=== PATIENT | male | born 1945 | race Caucasian/White ===

== ENCOUNTER → 2020-07-31 14:15 | Outpatient (BNVA) | payer MEDICARE, SELFPAY | PROVIDERS: PCP Family Medicine; Visit Provider Internal Medicine Cardiovascular Disease | DX: I25.10 Atherosclerotic heart disease of native coronary artery without angina pectoris (principal); E78.5 Hyperlipidemia, unspecified | CPT/HCPCS: 93005; 99212 ==

== ENCOUNTER → 2021-08-01 10:01 | Outpatient (BNVA) | payer MEDICARE, SELFPAY | PROVIDERS: PCP Family Medicine; Referring Provider Family Medicine; Visit Provider Internal Medicine Cardiovascular Disease | DX: I25.10 Atherosclerotic heart disease of native coronary artery without angina pectoris (principal); E78.5 Hyperlipidemia, unspecified | CPT/HCPCS: 93005; 99212 ==

== ENCOUNTER → 2022-08-04 09:48 | Outpatient (BNVA) | payer MEDICARE, SELFPAY | PROVIDERS: PCP Family Medicine; Referring Provider Family Medicine; Visit Provider Internal Medicine Cardiovascular Disease | DX: I25.10 Atherosclerotic heart disease of native coronary artery without angina pectoris (principal) | CPT/HCPCS: 93005; 99212 ==

== ENCOUNTER 2023-08-03 08:23 | Outpatient (REF) | payer MEDICARE, SELFPAY ==
[2023-08-03 10:47] LABS: Cholesterol 123 mg/dL (<200); HDL Cholesterol 43 mg/dL (>40); LDL Cholesterol Calculated 62 mg/dL (<100); Triglycerides 94 mg/dL (<150)
[2023-08-04 14:09] LABS: CRP High Sensitivity 0.3 mg/L
== END 2023-08-03 08:24 | disposition home or self-care (01) ==
LOC: HO.LAB 08:23
PROVIDERS: PCP Family Medicine; Visit Provider Internal Medicine Cardiovascular Disease
DX: I25.10 Atherosclerotic heart disease of native coronary artery without angina pectoris (principal); E78.5 Hyperlipidemia, unspecified
CPT/HCPCS: 36415; 80061; 86141

== ENCOUNTER 2023-08-06 09:13 | Outpatient (AMB) | payer MEDICARE, SELFPAY ==
--- NOTE | 2023-08-06 09:15 | A.OFFVIS_ITS ---
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 He has remained very active generally. Still plays golf. Denies any symptoms exertional chest pain. Has notice mild slowing down but not really significant shortness of breath or fatigue. No orthopnea, PND. No symptoms of claudication. No prolonged palpitations, lightheadedness, syncope. [facility] Medical History History of myocardial infarction Hyperlipidemia CAD (coronary artery disease) Surgical History Stented coronary artery Hx of cardiac cath Family History Father Lung cancer Mother CVD (cardiovascular disease) Breast CA Social History Household Members: Spouse Housing: House Alcohol intake: current Alcohol intake frequency: holidays/special occasions only Patient Tobacco Use Status: Never used Tobacco Review of Systems Const Denies chills, Denies fatigue, Denies fever(s), Denies frequent falls, Denies weakness, Denies weight gain and Denies weight loss ENT Denies dizziness Card Denies chest pain, Denies leg edema, Denies lightheadedness, Denies palpitations, Denies dyspnea, Denies dyspnea on exertion, Denies orthopnea and Denies other (loss of consciousness) Resp Denies cough, Denies dyspnea and Denies dyspnea on exertion GI Denies hematochezia and Denies change in stool character Musc Denies abnormal gait, Denies muscle weakness, Denies numbness, Denies radiating pain into limb and Denies tingling Neuro Denies abnormal gait, Denies dizziness, Denies frequent falls, Denies numbness, Denies tingling and Denies weakness Endo Denies fatigue and Denies palpitations Physical Exam Vital Signs: Last Vital Signs Pulse 65 08/06/23 09:16 BP 120/80 08/06/23 09:16 BMI result Body Mass Index 28.8 Const General: cooperative, comfortable, alert, awake and well groomed Nutritional Appearance: overweight Orientation/consciousness: patient oriented x3 Limitations: no limitations HEENT Head: Yes normocephalic and Yes atraumatic Neck Neck: Yes trachea midline and Yes supple Resp Effort & Inspection: normal respiratory effort Auscultation: clear to auscultation bilaterally Cardio Jugular venous distension: no JVD Palpation: normal PMI Rate: regular rate Rhythm: regular rhythm Heart sounds: S1 normal heart sound present and S2 normal heart sound present Peripheral pulses: Peripheral pulses 2+ throughout GI Auscultation: normal bowel sounds Skin General skin exam: no rashes or lesions noted Neuro General: patient oriented x3 and no focal motor deficits Extrem General: Yes no clubbing, cyanosis or edema Psych Appearance: grossly normal Office Procedures EKG Details: EKG shows normal sinus rhythm normal EKG at 65 beats per minute [id number], Complete Assessment & Plan Assessment & Plan (1) CAD (coronary artery disease): Code(s): I25.10 - Atherosclerotic heart disease of [place] coronary artery without angina pectoris Plan: CAD status post total posterior TX status post circumflex stenting in 2015. Has remained stable. He has no current concerning symptoms. Continue to monitor for symptoms advised to call me with worsening shortness of breath or chest discomfort which may require further workup. Continue lifelong aspirin therapy. Continue high-intensity statin therapy with well optimized LDL. His blood pressure is currently well optimized. Encouraged to continue to participate in physical activity as tolerated. Will follow up in the clinic in 1 year's time, sooner p.r.n.. Thank you for allowing me to partake in his care Coding Level of Care Code Est Pt Level 4 (84142) Diagnoses CAD (coronary artery disease) I25.10 CPT Codes EKG - CPT: 32273-[id number], Complete ([id number])
[2023-08-06 09:16] VITALS: BP 120/80; PULSE 65; BMI 28.8
== END 2023-08-06 09:36 | disposition home or self-care (01) ==
PROVIDERS: Visit Provider Internal Medicine Cardiovascular Disease
DX: I25.10 Atherosclerotic heart disease of native coronary artery without angina pectoris (principal)
CPT/HCPCS: 93010; 99214

== ENCOUNTER → 2023-08-06 09:13 | Outpatient (BNVA) | payer MEDICARE, SELFPAY | PROVIDERS: Visit Provider Internal Medicine Cardiovascular Disease | DX: I25.10 Atherosclerotic heart disease of native coronary artery without angina pectoris (principal) | CPT/HCPCS: 93005; 99212 ==

== ENCOUNTER 2024-08-11 09:22 | Outpatient (AMB) | payer MEDICARE, SELFPAY ==
[2024-08-11 09:25] VITALS: BP 120/62; PULSE 66; BMI 29.2
--- NOTE | 2024-08-11 09:25 | A.OFFVIS_ITS ---
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 He has been doing very well from cardiac perspective. However he has not been regularly participating in aerobic activity in the winter time. He was no exertional chest pain or shortness of breath with his day-to-day activity. Denies any heart failure symptoms. Denies any lightheadedness, syncope. No issues with his medications. Most recent LDL was 62 mg/dL. [facility] Medical History History of myocardial infarction Hyperlipidemia CAD (coronary artery disease) Surgical History Stented coronary artery Hx of cardiac cath Family History Father Lung cancer Mother CVD (cardiovascular disease) Breast CA Social History Household Members: Spouse Housing: House Alcohol intake: current Alcohol intake frequency: holidays/special occasions only Patient Tobacco Use Status: Never used Tobacco Review of Systems Const Denies chills, Denies fatigue, Denies fever(s), Denies frequent falls, Denies weakness, Denies weight gain and Denies weight loss ENT Denies dizziness Card Denies chest pain, Denies leg edema, Denies lightheadedness, Denies palpitations, Denies dyspnea and Denies dyspnea on exertion Resp Denies cough, Denies dyspnea and Denies dyspnea on exertion GI Denies hematochezia Musc Denies abnormal gait, Denies muscle weakness, Denies numbness, Denies radiating pain into limb and Denies tingling Neuro Denies abnormal gait, Denies dizziness, Denies frequent falls, Denies numbness, Denies tingling and Denies weakness Endo Denies fatigue and Denies palpitations Physical Exam Vital Signs: Last Vital Signs Pulse 66 08/11/24 09:25 BP 120/62 08/11/24 09:25 BMI result Body Mass Index 29.2 Const General: cooperative, comfortable, alert, awake and well groomed Nutritional Appearance: overweight Orientation/consciousness: patient oriented x3 Limitations: no limitations HEENT Head: Yes normocephalic and Yes atraumatic Neck Neck: Yes trachea midline and Yes supple Resp Effort & Inspection: normal respiratory effort Auscultation: clear to auscultation bilaterally Cardio Jugular venous distension: no JVD Palpation: normal PMI Rate: regular rate Rhythm: regular rhythm Heart sounds: S1 normal heart sound present and S2 normal heart sound present Peripheral pulses: Peripheral pulses 2+ throughout GI Auscultation: normal bowel sounds Skin General skin exam: no rashes or lesions noted Neuro General: patient oriented x3 and no focal motor deficits Extrem General: Yes no clubbing, cyanosis or edema Psych Appearance: grossly normal Office Procedures EKG Details: EKG shows normal sinus rhythm with normal EKG at 66 beats per minute [id number], Complete Assessment & Plan Assessment & Plan (1) CAD (coronary artery disease): Code(s): I25.10 - Atherosclerotic heart disease of [place] coronary artery without angina pectoris Category: Medical Plan: Coronary artery disease, stable with remote stenting for acute myocardial infarction in the circumflex territory. Doing very well at current point time. No recent symptoms. Continue aggressive medical therapy. Continue low-dose aspirin therapy. We again discussed about pathophysiology of coronary artery disease and role of statin and secondary prevention. His LDL is optimized at 62 mg/dL. Continue high-intensity statin therapy as recommended by ACC/[facility] guidelines. He understands in his agreeing. Annual check for lipids. He is encouraged to increase his aerobic activity level. He said he was start to do that. Will follow up in the clinic in 1 year's time, sooner p.r.n.. Thank you for allowing me to partake in his care Coding Level of Care Code Est Pt Level 4 (70840) Complex EM visit Add On G2211 Diagnoses CAD (coronary artery disease) I25.10 CPT Codes EKG - CPT: 27167-[id number], Complete ([id number])
--- OUTSIDE RECORDS SUMMARY | 2024-08-11 12:28 | XMS_ITS | Data Portability ---
Author Organization [facility], [facility] Address [address] [place] [address] Care Team Providers Care Oxyacetylene Torch Operator Name Role Phone FALLON RODRIGUEZ OTHER ANDREAS RYDER Primary Care Provider Assessment Encounter Date Assessment Date Assessment LastModified by Organization Details LastModified Time 04/05/2024 04/05/2024 We completed your Medicare Wellness exam today. This was an opportunity to assess your overall well being including your ability to care for yourself, your mobility, memory, mental health, as well as your safety. With advancing age, it is important to assign someone in your life as your Health Care Proxy (HCP). This person should know what is important to you and what your wishes are for medical procedures if you cannot communicate your wishes yourself (severe illness, unconsciousness) . We discussed having a completed Health Care Proxy form today. In addition, today we started a conversation about your End of Life wishes. These conversations will continue over the years. Please consider reading the book, Being Mortal by Romario Mendez to help frame future conversations. We discussed the purpose of a MOLST form (Medical Orders for Life Sustaining Treatment) and completed this form if appropriate per your wishes. Vision and Hearing are senses that are critically important as we age. When impaired, they can contribute to memory loss, falls, and make it harder to drive, talk to family and friends, and engage in the world. Please get your vision checked yearly and your hearing checked when you start to notice hearing loss. We discussed approaches to lowering your risk of heart disease and stroke . Your blood pressure is at goal. Your cholesterol is at goal. We discussed cancer screening you may need as well as vaccines to prevent infections. Colon Cancer : Your risk of colon cancer is higher than average due to personal history of colon polyps. Due for colorectal screenin. If you are not planning to have a colonoscopy please screen with stool cards yearly. Breast Cancer : Breast Cancer Screening (mammography). Next mammogram due: . Influenza Vaccine : Flu shot yearly. Tetanus Vaccine : Every 10 years. Due: . The following vaccines are available from your pharmacy: Pneumonia Vaccine : PCV20: once after age 65. Shingles Vaccine : 2 shots after age 50. Covid Vaccine : Make sure you have received the most up to date covid vaccine. Your personal health goal for the year is: floyd Not available 04/05/2024 16:04:20 Plan of Treatment Reminders Order Date Submit Date Provider Last Modified By Organization Details Last Modified Time Details Appointments LAB Follow-Up 2024 08:15A M [facility] Lab Not available Not available Not available Medicare Return Wellness Visit 2024 11:15A M Andreas Ryder MD Not available Not available Not available Lab HbA1c (hemoglob in A1c), blood 2020 021 [facility], [address] [place] [address], [id number], 04/22/2021 12:02:46 lipid panel, serum 2020 021 [facility], [address] [place] [address], [id number], 04/22/2021 12:10:01 BMP, serum or plasma 2020 021 [facility], [address] [place] [address], [address], 04/22/2021 12:09:59 CRP, high sensitivi ty, serum or plasma 2023 024 [facility], [address] [place] [address], [id number], 04/19/2024 04:03:04 HbA1c (hemoglob in A1c), blood 2023 024 [facility], [address] [place] [address], [id number], 04/18/2024 11:53:40 BMP, serum or plasma 2023 024 [facility], [address] [place], [address], 04/19/2024 13:07:18 lipid panel, serum 2023 024 [facility], [address] [place], [address], 04/19/2024 13:07:19 Referral gastroent erologist referral - [facility] dysphagia every 2 months. with meat. ? altered peristals is/ esoph spasm/ vs stricture ( less likely). Barium swallow ordered 2019 020 [facility], [address] [place] [address], [id number], 03/22/2020 13:48:55 Procedures None recorded. Surgeries None recorded. Imaging barium swallow study - regular barium swallow, no speech therapist needed/Fo od getting stuck every 2 months( then for a few meals at a time after that). then normal./c an be done in a few months if need be 2019 020 [facility], [address] [place], [address], 12/07/2019 11:09:42 Medication Orders prednison e 20 mg tablet 2023 024 [facility]acy #[id number], [address] [place], [address], 04/01/2024 10:03:44 Patient TargetsNo targets recorded. Patient Instructions Encounter Date Encounter Id Patient Instructions Last Modified By Organization Details Last Modified Time 11/29/2019 [id number] This was a telehealth video visit using the program in lieu of an in person visit due to the Covid 19 at pandemic. The patient was notified that the provider location as the [facility] [place] location: Home Mode of communication:Dox y.me It is recommended for them to schedule an in person visit if necessary. Call for worsening or urgent symptoms. floyd Not available 11/29/2019 17:20:41 03/12/2020 [id number] advance directives: care instructions floyd Not available 03/12/2020 11:53:29 well visit, over 65: care instructions freida Not available 03/12/2020 11:53:28 MOLST discussion no change- recussitate, but not prolonged life support. [facility] Not [facility] 03/12/2020 11:53:28 Prostate Cancer Screening using PSA was discussed. The U.S. Preventive Services Task Force advises not to make a PSA test a part of the standard exam for men ages 55-69. Instead they recommend the uncertainties about the test be discussed and ordered only if a patient still wants it. Over their lifetimes as many as 50% or more of men will develop prostate cancer but only 2% of men will of prostate cancer. For men who chose to be screened for prostate cancer if 1000 men are screened with a psa test over a 15 year period there might be 1-2 deaths prevented however 235 men will have a biopsy with risk of infection, bleeding and Pain, 100 men will have their prostate removed by surgery or radiation treatments and 60-70 of those will suffer incontinence or impotence. There is also the risk of anesthesia or radiation complications. For men over 70 prostate cancer screening offered no benefit and risked pain, worry, expense and possibly shorter life expectancy. tvenneJohana Not available 03/12/2020 11:26:22 04/16/2021 [id number] advance directives: [facility] 04/16/2021 14:12:06 well visit, over 65: care instructions [facility] Not available 04/16/2021 14:12:06 MOLST- short ter m resucitaiton still desired. [facility] Not available 04/16/2021 14:08:07 Prostate Cancer Screening using PSA was discussed. The U.S. Preventive Services Task Force advises not to make a PSA test a part of the standard exam for men ages 55-69. Instead they recommend the uncertainties about the test be discussed and ordered only if a patient still wants it. Over their lifetimes as many as 50% or more of men will develop prostate cancer but only 2% of men will of prostate cancer. For men who chose to be screened for prostate cancer if 1000 men are screened with a psa test over a 15 year period there might be 1-2 deaths prevented however 235 men will have a biopsy with risk of infection, bleeding and Pain, 100 men will have their prostate removed by surgery or radiation treatments and 60-70 of those will suffer incontinence or impotence. There is also the risk of anesthesia or radiation complications. For men over 70 prostate cancer screening offered no benefit and risked pain, worry, expense and possibly shorter life expectancy. Not available 04/16/2021 12:17:04 Reason for Referral Point Of Sale Associate Referral for Esophageal dysphagia intermittnet [facility] dysphagia every 2 months. with meat. ? altered peristalsis/ esoph spasm/ vs stricture( less likely). Barium swallow ordered Referring Physician: Andreas Ryder, Family Medicine, Encounter Date: 11/29/2019 Results Created Date Observation Date Name Description Value Unit Range Abnormal Flag Note LastModifiedBy Organization Detail LastModifiedTime 01/01/20 20 01/01/2020 SARS CoV 2 RNA (COVI D-19) , QL, texturing machine fixer-P CR, respi rator y speci men covid-19 source NASAL SWAB Not Available [facility] (Out[facility]) [address] [place] [address], [address], 01/01/2020 16:58:56 01/01/20 20 01/01/2020 SARS CoV 2 RNA (COVI D-19) , QL, texturing machine fixer-P CR, respi rator y speci men covid testing status In-renee se testin g being perfor med Not Available [facility] (Out[facility]) [address] [place], [address], 01/01/2020 16:58:56 01/01/20 20 01/01/2020 SARS CoV 2 RNA (COVI D-19) , QL, texturing machine fixer-P CR, respi rator y speci men specimen source NASAL Not Available [facility] (Out[facility]) [address] [place], [address], 01/01/2020 17:45:57 01/01/20 20 01/01/2020 SARS CoV 2 RNA (COVI D-19) , QL, texturing machine fixer-P CR, respi rator y speci men sars-cov-2 result Negati ve negati ve Negat kelsey resul ts do not precl ude SARS- CoV-2 infec tion and shoul d not be used as the sole basis for patie nt manag ement decis ions. Negat kelsey resul ts must be combi daren with clini essence obser vatio ns, patie nt histo ry, and epide miolo gical infor matio n. Testi ng was perfo rmed using the Abbot t ID NOW COVID -19 assay perfo rmed on the Abbot t ID NOW Instr ument . Fact sheet s for this Emerg ency Use Autho rizat ion can be found at the MarkITx links : For Healt hcare Provi ders: https ://TerraSky.Activate Healthcare .gov/ media /3732 23/do wnloa d For Patie nts: https ://Struq .gov. media /1368 24/do wnloa d. Not Available [facility]) [address] [place], [address], 01/01/2020 17:45:57 01/03/20 20 01/04/2020 patho logy study path report [facility] [address] [place] [address] Lab Direc tor: Erika negrete MD Surgi essence Patho logy Repor Acces jak #: [id number] FINAL PATHO LOGIC DIAGN OSIS: A. STOMA CH, BIOPS Y: No patho logic abnor malit y. B. GASTR OESOP HAGEA L JUNCT ION, BIOPS Y: Squam ocolu mnar junct ion with reflu x esoph agiti s. No evide nce of compl ete intes tinal metap lasia or dyspl ginny. C. MID ESOPH BRITT, BIOPS Y: Benig n squam ous mucos a. No evide nce of infla mmati on or eosin ophil ia. Lyla ctron icall y Deedee d Out By Erika negrete MD By his/h er zohreh barnett above , the patho logis t liste d as alice márquez the Final Diagn osis certi fies that he/sh e has perso hailey revie wed this case and confi rmed or corre cted the diagn osis. CLINI ESSENCE HISTO RY Dysph agia EGD: eryth emato us mucos a in antru m, hiata l herni a, Z-megan e irreg ular SPECI MENS SUBMI TTED: A: STOMA CH, BIOPS Y B: GASTR OESOP HAGEA L JUNCT ION BIOPS Y C: MID ESOPH BRITT, BIOPS Y GROSS DESCR IPTIO N A. STOMA CH, BIOPS Y: Recei hakeem in forma megan are 2 piece s of funes soft tissu e which measu re 0.2 and 0.3 cm in great est dimen jak. Total ly submi tted in block A1. B. GASTR OESOP HAGEA L JUNCT ION BIOPS Y: Recei hakeem in forma megan are 3 piece s of funes soft tissu e which range in size from 0.1 to 0.2 cm. Total ly submi tted in block B1. C. MID ESOPH BRITT, BIOPS Y: Recei hakeem in forma megan are 2 piece s of funes-w mireille soft tissu e which measu re 0.2 and 0.3 cm in great est dimen jak. Total ly submi tted in block C1. DN 2019 Gross ing Staff : ANDRY greene Name: DEUCE CoronaMELODIE : 1945 (Age: 74) Sex: M 2 Insti tutio n: [facility] Locat ion: [facility] Date of Opera tion: 2019 Date of Acces jak: 2019 Repor tiara: 2019 15:51 Resul ts To: Lalo Gee MD, BS, MS Aneta Queen and , BS Not Available [facility] (Out[facility]) [address] [place] [address], [address], 01/04/2020 15:52:20 04/16/20 20 04/16/2020 CBC WBC 3.85 K/? ? ?L 4.23-9 .07 low Not Available [address], [address], 04/16/2020 12:45:46 04/16/2004/16/2020 CBC RBC 4.82 M/? ? ?L 4.63-6 .08 Not Available [address], [address], 04/16/2020 12:45:46 04/16/2004/16/2020 CBC HGB 14.3 g/dL 13.7-1 7.5 Not Available [address], [address], 04/16/2020 12:45:46 04/16/2004/16/2020 CBC HCT 42.8 % 40.1-5 1.0 Not Available [address], [address], 04/16/2020 12:45:46 04/16/2004/16/2020 CBC MCV 88.8 fL 79.0-9 2.2 Not Available [address], [address], 04/16/2020 12:45:46 04/16/2004/16/2020 CBC MCH 29.7 pg 25.7-3 2.2 Not Available [address], [address], 04/16/2020 12:45:46 04/16/2004/16/2020 CBC MCHC 33.4 g/dL 32.3-3 6.5 Not Available [address], [address], 04/16/2020 12:45:46 04/16/2004/16/2020 CBC plt 248 K/? ? ?L 163-33 7 Not Available [address], [address], 04/16/2020 12:45:46 04/16/2004/16/2020 CBC MPV 11.0 fL 9.4-12 .4 Not Available [address], [address], 04/16/2020 12:45:46 04/16/2004/16/2020 CBC neut% 55.5 % 34.0-6 7.9 Not Available [address], [address], 04/16/2020 12:45:46 04/16/2004/16/2020 CBC neut# 2.14 1.78-5 .38 Not Available [address], [address], 04/16/2020 12:45:46 04/16/2004/16/2020 CBC lymph % 31.2 % 21.8-5 3.1 Not Available [address], [address], 04/16/2020 12:45:46 04/16/2004/16/2020 CBC lymph # 1.20 K/? ? ?L 1.32-3 .57 low Not Available [address], [address], 04/16/2020 12:45:46 04/16/2004/16/2020 CBC mono% 8.3 % 5.3-12 .2 Not Available [address], [address], 04/16/2020 12:45:46 04/16/2004/16/2020 CBC mono# 0.32 0.30-0 .82 Not Available [address], [address], 04/16/2020 12:45:46 04/16/2004/16/2020 CBC eo% 3.4 % 0.8-7. 0 Not Available [address], [address], 04/16/2020 12:45:46 04/16/2004/16/2020 CBC eo# 0.13 0.04-0 .54 Not Available [address], [address], 04/16/2020 12:45:46 04/16/2004/16/2020 CBC baso% 1.3 % 0.2-1. 2 high Not Available [address], [address], 04/16/2020 12:45:46 04/16/2004/16/2020 CBC baso# 0.05 0.00-0 .08 Not Available [address], [address], 04/16/2020 12:45:46 04/16/2004/16/2020 CBC RDW-CV 13.2 % 11.6-1 4.4 Not Available [address], [address], 04/16/2020 12:45:46 04/16/2004/16/2020 CBC Ig% 0.300 % 0.000- 1.500 Ig % >0.5 Indic ates possi ble Left Shift Not Available [address], [address], 04/16/2020 12:45:46 04/16/2004/16/2020 CBC Ig# 0.010 0.000- 0.093 Not Available [address], [address], 04/16/2020 12:45:46 04/16/2004/16/2020 CBC NRBC% 0.0 % 0.0-0. 2 Not Available [address], [address], 04/16/2020 12:45:46 04/16/20 20 04/16/2020 CBC NRBC# 0.000 0.000- 0.012 Not Available [address], [address], 04/16/2020 12:45:46 04/16/20 20 04/16/2020 BMP, serum or plasm a glucose 104 mg/dL 70-100 high Not Available [address], [address], 04/16/2020 16:07:47 04/16/20 20 04/16/2020 BMP, serum or plasm a BUN 15 mg/dL 7-18 Not Available [address], [address], 04/16/2020 16:07:47 04/16/20 20 04/16/2020 BMP, serum or plasm a creatinine 1.0 mg/dL 0.8-1. 3 Not Available [address], [address], 04/16/2020 16:07:47 04/16/20 20 04/16/2020 BMP, serum or plasm a B/C 15.0 ratio Not Available [address], [address], 04/16/2020 16:07:47 04/16/20 20 04/16/2020 BMP, serum or plasm a GFR -non 77.8 mL/mi n Recom julee d GFR by the Natio nal Kidne y Found ation >60 mL/mi n/1.7 3m2 - Seda l <60 mL/mi n/1.7 3m2 - Chron ic Kidne y Disea se <15 mL/mi n/1.7 3m2 - Kidne y Failu re Not Available [address], [address], 04/16/2020 16:07:47 04/16/20 20 04/16/2020 BMP, serum or plasm a GFR - if 94.2 mL/mi n For Afric an Ameri can patie nts: Resul ts Multi plied by 1.21 Not Available [address], [address], 04/16/2020 16:07:47 04/16/20 20 04/16/2020 BMP, serum or plasm a sodium 140 mmol/ L 136-14 5 Not Available [address], [address], 04/16/2020 16:07:47 04/16/2004/16/2020 BMP, serum or plasm a potassium 4.6 mmol/ L 3.5-5. 1 Not Available [address], [address], 04/16/2020 16:07:47 04/16/2004/16/2020 BMP, serum or plasm a chloride 105 mmol/ L 96-107 Not Available [address], [address], 04/16/2020 16:07:47 04/16/2004/16/2020 BMP, serum or plasm a anion gap 10.4 5.0-15 .0 Not Available [address], [address], 04/16/2020 16:07:47 04/16/2004/16/2020 BMP, serum or plasm a CO2 25 mmol/ L 21-32 Not Available [address], [address], 04/16/2020 16:07:47 04/16/2004/16/2020 BMP, serum or plasm a calcium 8.7 mg/dL 8.5-10 .3 Not Available [address], [address], 04/16/2020 16:07:47 04/16/2004/16/2020 lipid panel , serum cholesterol 121 mg/dL <200 mg/dl Waqar able 200-2 39 mg/dl Borde rline High >240 mg/dl High Not Available [address], [address], 04/16/2020 16:07:49 04/16/20 20 04/16/2020 lipid panel , serum triglyceride s 53 mg/dL <150 mg/dL Seda l 150-1 99 mg/dL Borde rline High 200-4 99 mg/dL High >500 mg/dL Very High Not Available [address], [address], 04/16/2020 16:07:49 04/16/2004/16/2020 lipid panel , serum direct HDL 52 mg/dL <40 mg/dl - Major Risk for CHD >60 mg/dl - Negat kelsey Risk for CHD Not Available [address], [address], 04/16/2020 16:07:49 04/16/2004/16/2020 LDL, calcu lated , serum (OBS) LDL - calculated 58.4 RISK CATEG ORY LDL GOAL _ CHD or CHD Risk Equiv alent s <100 mg/dl (10-y ear risk >20%) 2+ Risk Facto rs <130 mg/dl (10-y ear risk <= 20%) 0-1 Risk Facto r? <160 mg/dl ? Almos t all peopl e with 0-1 risk facto r have a 10 year risk <10%, thus 10 year risk asses ment in peopl e with 0-1 risk facto r is not neces keily. Not Available [address], [address], 04/16/2020 16:07:50 04/24/2004/28/2020 SARS CoV 2 RNA (COVI D-19) , QL, texturing machine fixer-P CR, respi rator y speci men sars cov 2 RNA NOT DETECT ED not detect ed normal A Not Detec tiara (nega tive) test resul t for this test means that SARS- CoV-2 RNA was not prese nt in the speci men above the limit of detec tion. A negat kelsey resul t does not rule out the possi bilit y of COVID -19 and shoul d not be used as the sole basis for treat ment or patie nt manag ement decis ions. If COVID -19 is still suspe cted, based on expos ure histo ry toget her with other clini essence findi ngs, re-te sting shoul d be consi dered in consu ltati on with publi c healt h autho ritie s. Labor atory test resul ts shoul d alway s be consi dered in the erick xt of clini essence obser vatio ns and epide miolo gical data in makin g a final diagn osis and patie nt manag ement decis ions. Norma whiting w the Fact Sheet s and FDA autho rized label ing avail able for healt h care provi ders and patie nts using the follo wing websi mary jo: https ://merry w.que stdia gnost ics.c om/ho me/Co vid-1 9/HCP /NAAT /fact -shee t2 https ://merry w.que stdia gnost ics.c om/ho me/Co vid-1 9/Pat ients /NAAT / fact- sheet 2 This test has been autho rized by the FDA under an Emerg ency Use Autho rizat ion (EUA) for use by autho rized labor atori es. Due to the curre nt publi c healt h emerg ency, [facility] is recei ving a high volum e of sampl es from a wide varie ty of swabs and media for COVID -19 testi ng. In order to serve patie nts esaugold g this publi c healt h crisi s, sampl es from appro priat e clini essence sourc es are being teste d. Negat kelsey test resul ts deriv ed from speci mens recei hakeem in non-c ommer ciall y manuf actur ed viral colle ction and trans port media , or in media and sampl e colle ction kits not yet autho rized by FDA for COVID -19 testi ng shoul d be cauti ously evalu ated and the patie nt poten tiall y subje cted to extra preca ution s such as addit ional clini essence monit oring , inclu ding colle ction of an addit ional speci men. Metho dolog y: Nucle ic Acid Ampli ficat ion Test (NAAT ) inclu amadou RT-PC R or TMA Addit ional infor donavan rey about COVID -19 can be found at the [facility] and[facility] fortune te: www.Michelle uamericoD iagno Wummelboxs .com/ Covid 19. Not Available [facility] [address] [place] [address] B, [place], [address], 04/28/2020 07:12:02 11/09/19 21 11/08/2020 SARS CoV 2 RNA (COVI D-19) , QL, texturing machine fixer-P CR, respi rator y speci men covid testing status Speci men recei hakeem in [facility]. Migdalia melton be avail able withi n 24 to 48 hrs. Not Available [facility] ([facility]) [address] [place] [address], [address], 11/08/2020 14:05:18 11/09/19 21 11/08/2020 SARS CoV 2 RNA (COVI D-19) , QL, texturing machine fixer-P CR, respi rator y speci men symptomatic? NO Not Available [facility] (Outpatient) [address] [place], [address], 11/08/2020 14:05:18 11/09/19 21 11/09/2020 SARS CoV 2 RNA, QL probe , unspe cifie d speci men specimen source AN SWAB Not Available [facility] ([facility]) [address] [place] [address], [address], 11/09/2020 11:50:38 11/09/19 21 11/09/2020 SARS CoV 2 RNA, QL probe , unspe cifie d speci men sars-cov 2 (covid-19) PCR NEGATI VE negati ve (NOTE ) 2019- novel Coron aviru s (2019 -nCoV ) not detec tiara by the qRT-P CR assay . Consi chico testi ng for other respi rator y virus es or re-co llect ing for testi ng. Note: Optim um timin g for peak viral level s durin g infec tions cause d by have not been deter mined . Colle ction of multi ple speci mens from the same patie nt may be neces keily to detec t the virus . Metho ds and Limit ation s: This Labor atory Devel oped Test is a high- throu ghput versi on of the [facility] Realt nita RT-PC R test and has been valid ated in accor dance with the berenice nce issue d by the [facility]le ge of [facility] [place] can Patho logis ts (Sep 28) and the FDA (Sep 10, 2019) . This test has not been FDA clear ed or appro hakeem but is being run under the FDAs Emerg ency Use Autho rizat ion (EUA) mecha nism. This test was valid ated for dry nasal swabs . Metho d: RNA is isola tiara from respi rator y speci mens using Homeloc X-96 Viral RNA [place] tion Kits (Ther mo Fishe r Scien tific ); RNA is rever se trans cribe d to cDNA, and subse quent ly ampli fied in a Real- Time PCR Instr ument (Appl ied Biosy stems ViiA7 ). This syste m provi amadou quali tativ e detec tion of nucle ic acid from SARS- CoV-2 . For more detai led infor donavan n on the test metho ds and limit ation s as well as for Fact Sheet s for both Patie nts and Healt hcare provi ders see https ://br oad.i o/cov id19t est-f actsh eetv3 . Posit kelsey resul ts are indic ative of activ e infec tion with SARS- CoV-2 but do not rule out bacte rial infec tion or co-in fecti on with other virus es. The agent detec tiara may not be the defin ite cause of disea se. Negat kelsey resul ts do not precl ude SARS- CoV-2 infec tion and shoul d not be used as the sole basis for patie nt manag ement decis ions. False negat kelsey resul ts may occur if ampli ficat ion inhib itors are prese nt in the speci men or if inade quate numbe rs of organ isms are prese nt in the speci men due to impro per colle ction , trans elvira tion, or handl ing. If the virus mutat es in the RT-PC R targe t regio n, SARS- CoV-2 may not be detec tiara or may be detec tiara less predi ctabl y. Inhib itors or other types of inter feren ce may produ ce a false negat kelsey resul t. Not Available [facility] (Out[facility]) [address] [place] [address], [address], 11/09/2020 11:50:38 04/22/2004/22/2021 HGB A1C hemoglobin A1C 6.3 % 4.8-6. 0 high Goal: <7% in Patie nts with Diabe mary jo An A1c betwe en 5.7-6 .4% is ident ified as pre-d iabet es and sugge sts risk for progr essio n to diabe mary jo Two a1c value s of 6.5% or highe r is consi stent with a diagn osis of diabe mary jo but may need furth er confi rmati on Not Available [address], [address], 04/22/2021 12:02:46 04/22/20 21 04/22/2021 HGB A1C estimated average glucose 134.1 mg/dL Not Available [address], [address], 04/22/2021 12:02:46 04/22/20 21 04/22/2021 BASIC METAB OLIC PANEL glucose 106 mg/dL 70-100 high Not Available [address], [address], 04/22/2021 12:09:59 04/22/20 21 04/22/2021 BASIC METAB OLIC PANEL BUN 15 mg/dL 7-18 Not Available [address], [address], 04/22/2021 12:09:59 04/22/20 21 04/22/2021 BASIC METAB OLIC PANEL creatinine 1.1 mg/dL 0.8-1. 3 Not Available [address], [address], 04/22/2021 12:09:59 04/22/20 21 04/22/2021 BASIC METAB OLIC PANEL B/C 13.6 ratio Not Available [address], [address], 04/22/2021 12:09:59 04/22/20 21 04/22/2021 BASIC METAB OLIC PANEL GFR 69.5 mL/mi n Recom julee d GFR by the Natio nal Kidne y Found ation >60 mL/mi n/1.7 3m2 - Seda l <60 mL/mi n/1.7 3m2 - Chron ic Kidne y Disea se <15 mL/mi n/1.7 3m2 - Kidne y Failu re Not Available [address], [address], 04/22/2021 12:09:59 04/22/20 21 04/22/2021 BASIC METAB OLIC PANEL sodium 140 mmol/ L 136-14 5 Not Available [address], [address], 04/22/2021 12:09:59 04/22/20 21 04/22/2021 BASIC METAB OLIC PANEL potassium 4.5 mmol/ L 3.5-5. 1 Not Available [address], [address], 04/22/2021 12:09:59 04/22/20 21 04/22/2021 BASIC METAB OLIC PANEL chloride 103 mmol/ L 96-107 Not Available [address], [address], 04/22/2021 12:09:59 1004/22/2021 BASIC METAB OLIC PANEL anion gap 9.9 5.0-15 .0 Not Available [address], [address], 04/22/2021 12:09:59 04/22/20 21 04/22/2021 BASIC METAB OLIC PANEL CO2 27 mmol/ L 21-32 Not Available [address], [address], 04/22/2021 12:09:59 04/22/2004/22/2021 BASIC METAB OLIC PANEL calcium 8.7 mg/dL 8.5-10 .3 Not Available [address], [address], 04/22/2021 12:09:59 04/22/20 21 04/22/2021 LIPID PANEL cholesterol 125 mg/dL <200 mg/dl Waqar able 200-2 39 mg/dl Borde rline High >240 mg/dl High Not Available [address], [address], 04/22/2021 12:10:01 04/22/2004/22/2021 LIPID PANEL triglyceride s 52 mg/dL <150 mg/dL Seda l 150-1 99 mg/dL Borde rline High 200-4 99 mg/dL High >500 mg/dL Very High Not Available [address], [address], 04/22/2021 12:10:01 04/22/2004/22/2021 LIPID PANEL direct HDL 54 mg/dL <40 mg/dl - Major Risk for CHD >60 mg/dl - Negat kelsey Risk for CHD Not Available [address], [address], 04/22/2021 12:10:01 04/22/20 21 04/22/2021 LDL - CALCU LATED LDL - calculated 60.6 RISK CATEG ORY LDL GOAL _ CHD or CHD Risk Equiv alent s <100 mg/dl (10-y ear risk >20%) 2+ Risk Facto rs <130 mg/dl (10-y ear risk <= 20%) 0-1 Risk Facto r? <160 mg/dl ? Almos t all peopl e with 0-1 risk facto r have a 10 year risk <10%, thus 10 year risk asses ment in peopl e with 0-1 risk facto r is not neckenney keily. Not Available [address], [address], 04/22/2021 12:10:03 04/18/20 24 04/18/2024 HGB A1C hemoglobin A1C 6.6 % 4.8-6. 0 high Goal: <7% in Patie nts with Diabe mary jo An A1c betwe en 5.7-6 .4% is ident ified as pre-d iabet es and sugge sts risk for progr essio n to diabe mary jo Two a1c value s of 6.5% or highe r is consi stent with a diagn osis of diabe mary jo but may need furth er confi rmati on Not Available [address], [address], 04/18/2024 11:53:40 04/18/20 24 04/18/2024 HGB A1C estimated average glucose 142.7 mg/dL Not Available [address], [address], 04/18/2024 11:53:40 04/18/20 24 04/19/2024 HS CRP hs CRP 0.2 mg/L normal Refer ence Range Optim al <1.0 Sherwin FERNANDEZ et al. Endoc r Pract .2017 ;23(S uppl 2):1- 87. For ages >17 Years : hs-CR P mg/L Risk Accor ding to AHA/C DC Guide lines <1.0 Lower relat kelsey cardi ovasc ular risk. 1.0-3 .0 [place] ge relat kelsey cardi ovasc ular risk. 3.1-1 0.0 Highe r relat kelsey cardi ovasc ular risk. Consi chico retes ting in 1 to 2 weeks to exclu de a benig n trans ient eleva tion in the basel ine CRP value secon kevin to infec tion or infla mmati on. >10.0 Persi stent eleva tion, upon retes ting, may be assoc iated with infec tion and infla mmati on. Pears on TA, Mensa h [place], Stacey mccartyr RW, et al. Marke rs of infla mmati on and cardi ovasc ular disea se: appli catio n to clini essence and publi c healt h pract ice: A state ment for healt hcare nadir atkins from the [facility] rs for Disea se Contr ol and Preve ntion and the Ameri can Heart Assoc iatio n. Circu latio n 2003; 107(3 ): 499-5 11. Not Available [facility] [address] [place] [address], [address], 04/19/2024 04:03:04 04/18/2004/19/2024 BASIC METAB OLIC PANEL glucose 101 mg/dL 70-100 high Not Available [address], [address], 04/19/2024 13:07:18 04/18/20 24 04/19/2024 BASIC METAB OLIC PANEL BUN 14 mg/dL 7-18 Not Available [address], [address], 04/19/2024 13:07:18 04/18/20 24 04/19/2024 BASIC METAB OLIC PANEL creatinine 1.0 mg/dL 0.8-1. 3 Not Available [address], [address], 04/19/2024 13:07:18 04/18/20 24 04/19/2024 BASIC METAB OLIC PANEL B/C 14.0 ratio Not Available [address], [address], 04/19/2024 13:07:18 04/18/20 24 04/19/2024 BASIC METAB OLIC PANEL GFR >=60ML /MIN mL/mi n normal >=60m L/min - Seda l or midly reduc ed <60mL /min- Decre ased kidne y funct ion <15mL /min - Kidne y failu re [facility] calcu lates estim ated Glome rular Filtr ation Rate (eGFR ) using the Chron ic Kidne y Disea se Epide miolo gy Colla borat ion (CKD- EPI) Equat ion (Alice corona et. al 2020) as recom julee d by the Natio nal Kidne y Found ation . eGFR is based on age, serum creat inine , and sex. CKD-E PI does not calcu late eGFR by race, does not apply to child nedra (age <18 years ), and shoul d not be used in pregn tony. Not Available [address], [address], 04/19/2024 13:07:18 04/18/20 24 04/19/2024 BASIC METAB OLIC PANEL sodium 142 mmol/ L 136-14 5 Not Available [address], [address], 04/19/2024 13:07:18 04/18/20 24 04/19/2024 BASIC METAB OLIC PANEL potassium 4.8 mmol/ L 3.5-5. 1 Not Available [address], [address], 04/19/2024 13:07:18 04/18/20 24 04/19/2024 BASIC METAB OLIC PANEL chloride 106 mmol/ L 96-107 Not Available [address], [address], 04/19/2024 13:07:18 04/18/20 24 04/19/2024 BASIC METAB OLIC PANEL anion gap 9.6 5.0-15 .0 Not Available [address], [address], 04/19/2024 13:07:18 04/18/20 24 04/19/2024 BASIC METAB OLIC PANEL CO2 26 mmol/ L 21-32 Not Available [address], [address], 04/19/2024 13:07:18 04/18/20 24 04/19/2024 BASIC METAB OLIC PANEL calcium 8.8 mg/dL 8.5-10 .3 Not Available [address], [address], 04/19/2024 13:07:18 04/18/20 24 04/19/2024 LIPID PANEL cholesterol 118 mg/dL <200 mg/dl Waqar able 200-2 39 mg/dl Borde rline High >240 mg/dl High Not Available [address], [address], 04/19/2024 13:07:19 04/18/2004/19/2024 LIPID PANEL triglyceride s 41 mg/dL <150 mg/dL Seda l 150-1 99 mg/dL Borde rline High 200-4 99 mg/dL High >500 mg/dL Very High Not Available [address], [address], 04/19/2024 13:07:19 04/18/2004/19/2024 LIPID PANEL direct HDL 52 mg/dL <40 mg/dl - Major Risk for CHD >60 mg/dl - Negat kelsey Risk for CHD Not Available [address], [address], 04/19/2024 13:07:19 04/18/20 24 04/19/2024 LDL - CALCU LATED LDL - calculated 58 RISK CATEG ORY LDL GOAL _ CHD or CHD Risk Equiv alent s <100 mg/dl (10-y ear risk >20%) 2+ Risk Facto rs <130 mg/dl (10-y ear risk <= 20%) 0-1 Risk Facto r? <160 mg/dl ? Almos t all peopl e with 0-1 risk facto r have a 10 year risk <10%, thus 10 year risk asses ment in peopl e with 0-1 risk facto r is not neckenney keily. Not Available [address], [address], 04/19/2024 13:07:20 Result Notes None recorded. Problems Name Problem SNOMED Code Status Onset Date Resolution Date Notes Provider Name and Address Organization Details Recorded Time Hematochez ia 877630021 Active Andreas Ryder MD [address] [place], [place] [address] [place], [phone], [facility] 4 20:13:26 Myocardial infarction 83127970 Active 201410/21/[address] took off of metoprolol in June 2016 Andreas Ryder MD [address] [place], [place] [address] [place], [address], [facility] 20:13:15 Angina pectoris 114806549 Active 2015 Had R arm pain. and chest pain 10/2014, stent placed. Andreas Ryder MD [address] [place], [place] [address] [place], [phone], [facility] 4 20:13:15 Prediabete s 294568207 Active 2023 Andreas Ryder MD [address] [place], [place] [address] [place], [address], [facility] 20:13:15 Problem Notes None recorded. Procedures Surgical History Date Name Laterality Status Provider Name and Address Organization Details Recorded Time 04/05/20 Medicare Wellness Visit completed Dinorah Banda CMA [facility] 04/05/2024 15:25:09 09/24/20 24 Advanced Care Planning completed Dinorah Banda [facility] 04/05/2024 15:30:16 04/16/20 21 Medicare Wellness Visit completed Dinorah Banda [facility] 04/16/2021 12:17:05 04/16/20 21 Alcohol use screening completed Dinorah Banda [facility] 04/16/2021 12:17:05 04/16/20 21 Cardiovascular disease risk reduction counseling completed Dinorah Banda [facility] 04/16/2021 12:17:05 03/12/20 20 Medicare Wellness Visit completed Dinorah Banda [facility] 03/12/2020 11:26:22 03/12/20 20 prevention-cardiov ascular risk reduction counseling completed Dinorah Banda [facility] 03/12/2020 11:26:23 03/12/20 20 prevention-annual alcohol misuse screening completed Dinorah Banda [facility] 03/12/2020 11:26:23 02/19/20 19 Medicare Wellness Visit completed Dinorah Banda [facility] 02/18/2019 10:45:19 02/19/20 19 Medicare Risk for Falls Screen completed Dinorah Banda [facility] 02/18/2019 10:46:18 02/17/20 18 Medicare Wellness Visit completed Светлана Chowdary [facility] 02/16/2018 13:45:49 01/16/20 18 Medicare Risk for Falls Screen completed MARGOT Castellanos [facility] 01/15/2018 16:24:49 02/11/20 17 Medicare Wellness Visit completed Carolann Charles [facility] 02/10/2017 13:57:20 02/11/20 17 Medicare Risk for Falls Screen completed Carolann Charles [facility] 02/10/2017 13:54:49 01/25/20 15 Medicare Wellness Visit completed Erika Cho [facility] 01/24/2015 08:45:29 01/25/20 15 Medicare Annual Wellness Visit completed rEika Cho [facility] 01/24/2015 08:53:18 01/25/20 15 Medicare Risk for Falls Screen completed Erika Cho [facility] 01/24/2015 08:53:18 10/22/19 15 Other (specify) completed Andreas Ryder MD [address] [place] [address], [phone], [facility] 10/28/2014 14:30:05 01/18/20 14 Medicare Wellness Visit completed Erika Cho [facility] 01/17/2014 13:36:00 01/12/20 13 Medicare Wellness Visit completed Priyanka Carroll [facility] 01/11/2013 13:47:55 12/29/19 12 Medicare Wellness Visit completed Priyanka Carroll [facility] 12/29/2011 11:32:08 Imaging Results None recorded. Procedure Notes None recorded. Medical Equipment None Reported. Allergies Allergen ID Allergen Name Allergen Category Reaction Reaction Severity Criticality Documentation Date Start Date Code Code System Note Provider Name and Address Organization Details Recorded Time 14688 Product containin g penicilli n and antibioti c (product) medicatio n rash Not available Not available 12/29/2011 91113 05 SNOMED Minor [facility] 13:53:49 Medications Name Sig Start Date Stop Date Status Note LastModified by Organization Details LastModified Time Prescript ion - Prior Authoriza tion Request active Not Available Not Available Not Available Singulair 10 mg tablet Take 1 tablet every day by oral route. active Not Available Not Available No t Available atorvasta tin 40 mg tablet TAKE 1 TABLET BY MOUTH EVERY DAY active Not Available Not Available No t Available atorvasta tin 80 mg tablet TAKE 1 TABLET BY MOUTH EVERY EVENING 04/01 completed Not Available Not Available Not Available prednison e 10 mg tablet active Not Available Not Available Not Available metoprolo l succinate ER 50 mg tablet,ex tended release 24 hr take 1 tablet by mouth once daily 08/06 completed stopped by cardiolo gist last month 08/06/16P A Not Available Not Available Not Available hydrocodo ne 5 mg-acetam inophen 325 mg tablet TAKE 1 TABLET BY MOUTH EVERY 6 HOURS NEEDED FOR PAIN. 04/01 completed pt not taking 04/01/24 MW Not Available Not Available Not Available fluocinon mady 0.05 % topical gel Apply 1 applicat ion 3 times a day by topical route as needed. active Not Available Not Available No t Available prednison e 20 mg tablet TAKE 2 TABLETS EVERY DAY FOR 5 DAYS active Not Available Not Available No t Available clindamyc in HCl 150 mg capsule TAKE 1 CAPSULE BY MOUTH FOUR TIMES A DAY 04/01 completed pt not taking 04/01/24 MW Not Available Not Available Not Available clopidogr el 75 mg tablet take 1 tablet by mouth once daily 08/17 completed Not Available Not Available Not Available Aspir-Low 81 mg tablet,de layed release Take 1 tablet every day by oral route. active Not Available Not Available No t Available prochlorp erazine maleate 10 mg tablet active Not Available Not Available Not Available doxycycli ne monohydra te 100 mg tablet take 2 tablet by mouth for 1 dose 02/18 completed Not Available Not Available Not Available tramadol 50 mg tablet TAKE 1 TABLET BY MOUTH EVERY 6 HOURS NEEDED FOR PAIN 04/01 completed pt not taking 04/01/24 MW Not Available Not Available Not Available oxycodone -acetamin ophen 5 mg-325 mg tablet take 1 tablet by mouth every 6 hours 02/16 completed Limited script for back pain, finished Not Available Not Available Not Available terbinafi ne HCl 250 mg tablet take 1 tablet by mouth once daily for 28 DAYS active Not Available Not Available No t Available Nitrostat 0.4 mg sublingua l tablet PLACE 1 TABLET UNDER THE TONGUE AND ALLOW TO DISSOLVE NEEDED; as directed BY PRESCRIB ER 04/16 completed Hasnt been using 08/13/18 DO Not Available Not Available Not Available clotrimaz ole-betam ethasone 1 %-0.05 % topical cream apply to affected area AND SURROUND ING AREAS OF SKIN TWICE DAILY ... (REFER TO PRESCRIP TION NOTES). 02/10 completed Not Available Not Available Not Available bisacodyl 5 mg tablet,de layed release TK 4 TS PO WITH 8 OUNCES OF WATER ONCE 04/16 completed Not Available Not Available Not Available methylpre dnisolone 4 mg tablets in a dose pack 01/15 completed Not Available Not Available Not Available fluocinon mady 0.05 % topical cream Apply 2x/d by topical route. 02/10 completed Not Available Not Available Not Available Asprin Ec Low Dose 81 mg tablet,de layed release Take 1 tablet every day by oral route. active Not Available Not Available No t Available cyclobenz aprine 5 mg tablet take 1 tablet by mouth three times a day 02/16 completed Limited script, finished Not Available Not Available Not Available chlorhexi dine gluconate 0.12 % mouthwash SWISH AND SPIT WITH 10 ML 3 TIMES A DAY 04/01 completed pt not taking 04/01/24 MW Not Available Not Available Not Available B Complex active Twice weekly Not Available Not Available Not Available multivita min active Not Available Not Available Not Available ProAir HFA 90 mcg/actua tion aerosol inhaler inhale 2 inhalati ons by mouth every 4 hours 04/01 completed has not used in a year(02/11 018) Not Available Not Available Not Available Glucos Chond Cplx Advanced 02/10 completed Not Available Not Available Not Available GaviLyte- G 236 gram-22.7 4 gram-6.74 gram-5.86 gram oral solution MIX AND DRINK UTD 04/16 completed Not Available Not Available Not Available Brilinta 90 mg tablet take 1 tablet by mouth twice a day 02/03 completed cardiolo gist replaced with Clopidri l 75 mg QD Not Available Not Available Not Available Jublia 10 % topical solution with applicato r active Not Available Not Available Not Available Vitals Date Recorded Body weight Provider Name an d Address Organization Details Last Updated DateTime 03/12/2020 33009.26 g Andreas Ryder MD [address] [place] [address], [phone], [facility] 03/12/2020 11:47:17 Date Recorded Body height Provider Name an d Address Organization Details Last Updated DateTime 04/16/2021 170.18 cm Dinorah Banda [facility] 04/16/2021 13:38:54 Date Recorded Body mass index (BMI) Body weight Provider Name and Address Organization Details Last Updated DateTime 04/16/2021 28.7 kg/m2 58960.4 g Dinorah Banda [facility] 04/16/2021 13:39:00 Date Recorded Heart rate Provider Name an d Address Organization Details Last Updated DateTime 04/16/2021 64 /min Dinorah Banda [facility] 04/16/2021 13:41:14 Date Recorded Body weight Provider Name an d Address Organization Details Last Updated DateTime 04/01/2024 49513.17 g Carmela Ray MA [facility] 04/01/2024 09:52:48 Date Recorded Heart rate Provider Name an d Address Organization Details Last Updated DateTime 04/01/2024 62 /min Carmela Ray [facility] 04/01/2024 09:54:29 Date Recorded Body temperature Provider Name a nd Address Organization Details Last Updated DateTime 04/01/2024 98.5 [degF] Carmela Ray [facility] 04/01/2024 09:58:18 Date Recorded Body height Provider Name an d Address Organization Details Last Updated DateTime 04/05/2024 170.18 cm Dinorah Banda [facility] 04/05/2024 15:34:05 Date Recorded Body mass index (BMI) Body weight Provider Name and Address Organization Details Last Updated DateTime 04/05/2024 28.8 kg/m2 55221 yulisa Dinorah Banda [facility] 04/05/2024 15:34:13 Date Recorded Heart rate Provider Name an d Address Organization Details Last Updated DateTime 04/05/2024 62 /min Dinorah Banda [facility] 04/05/2024 15:37:04 Date Recorded Systolic blood pressure Diastolic blood pressure Provider Name and Address Organization Details Last Updated DateTime 04/16/2021 106 mm[Hg] 70 mm[Hg] Dinorah Banda [facility] 04/16/2021 13:41:35 Date Recorded Systolic blood pressure Diastolic blood pressure Provider Name and Address Organization Details Last Updated DateTime 04/01/2024 122 mm[Hg] 64 mm[Hg] Carmela Brewsterobel [facility] 04/01/2024 09:56:06 Date Recorded Systolic blood pressure Diastolic blood pressure Provider Name and Address Organization Details Last Updated DateTime 04/05/2024 112 mm[Hg] 78 mm[Hg] Dinorah Banda [facility] 04/05/2024 15:36:45 Social History Question Answer Notes LastModified by Organizat ion Details LastModified Time Tobacco Smoking Status Never Smoker Priyanka Carroll, [employer] [facility], [facility] 12/29/2011 11:32:08 What Is Your Level Of Alcohol Consumption? Occasional 1 Drink Per Day [email or web address] Information not available 01/11/2013 What Is Your Level Of Caffeine Consumption? Moderate 2 Cups Per Day Information not available 11/21/2014 How Much Tobacco Do You Chew? None Information not available 11/21/2014 What Type Of Diet Are You Following? 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 1 Information not available 11/21/2014 Are There Any Guns Present In Your Home? No Information not available 10/25/2014 Live Alone Or With Others? With Others [email or web address] Information not available 12/29/2011 Does The Patient Have Difficulty Speaking Albanian? No [email or web address] Information not available 12/29/2011 Does The Patient Have Difficulty Reading Albanian? No [email or web address] Information not available 12/29/2011 Patient Has Health Care Proxy Signed And In Chart No [email or web address] Information not available 12/29/2011 MOLST Form Signed And In Chart 02/04/2016 [email or web address] Information not available 04/07/2018 Marital Status Marian Cleary Informati on not available 01/17/2014 Mosquito Repellent Used Routinely No Information not available 10/25/2014 What Was The Date Of Your Most Recent Tobacco Screening? 04/05/2024 Information not available 04/05/2024 How Many Children Do You Have? 1 Anahi- 47(2019) Chronic Fatigue [email or web address] Information not available 12/29/2011 Seat Belts Used Routinely Yes [email or web address] Information not available 12/29/2011 Smoke Alarm In Home Yes Information not available 10/25/2014 How Much Tobacco Do You Smoke? No Information not available 01/24/2015 General Stress Level Low [email or web address] Information not available 12/29/2011 Do You Use Sunscreen Routinely? No Information not available 10/25/2014 Sex: Male Functional Status None recorded. Mental Status None recorded. Family History Relationship Description Onset Age of this Age Resolved Age Notes LastModified by Organization Details LastModified Time Father Malignant tumor of lung 77 and bladde r [facility] Not available 01/17/2014 14:04:53 Maternal Grandmother Diabetes mellitus [facility] Not available 2013 14:04:53 Sister Malignant tumor of breast 38 A/W (-10) [facility] Not available 01/17/2014 14:04:53 Mother Malignant tumor of breast 65 97 [facility] Not available 2018 11:09:49 Mother Heart disease 86 CABG 86 , at 96 [facility] Not available 03/12/2020 11:49:24 Daughter Chronic fatigue syndrome Anahi [facility] Not available 2019 11:50:47 Notes:Brother (+3) [place], Medical History Condition Response Coronary Artery Disease Y MUSCULOSKELETAL Y CARDIOVASCULAR Y GASTROINTESTINAL Y Myocardial Infarction Y Asthma Y Allergies Y Immunizations Vaccine Type Date Status Note Provider Nam e and Address Organization Details Recorded Time zoster live 12/05/2008 completed Priyanka Carroll CMA null, [facility] 12/01/2011 15:54:45 pneumococcal, unspecified formulation 10/26/2007 completed Priyanka Carroll CMA null, [facility] 12/01/2011 15:54:45 Td(adult) unspecified formulation 11/06/1998 completed Priyanka Carroll CMA null, [facility] 12/01/2011 15:54:45 pneumococcal, unspecified formulation 12/27/2002 completed Priyanka Carroll CMA null, [facility] 12/01/2011 15:54:45 Tdap 10/26/2007 kimberley Carroll CMA null, [facility] 12/01/2011 15:58:45 Past Encounters Encounter ID Performer Location Encounter Start Date Encounter Closed Date Diagnosis/Indication Diagnosis SNOMED-CT Code Diagnosis ICD10 Code Diagnosis Note [id number] STAN BENITEZ, OFFICE [address] [place] [address] 12/29/2011 11:04:51 12/29/2011 12:27:42 [id number] STAN Starks, OFFICE [address] [place] [address] 01/11/2013 13:37:09 01/11/2013 14:40:37 [id number] Margarita Yina MARGOT , [facility], OFFICE [address] [place] [phone] 02/18/2013 10:53:01 02/18/2013 11:14:31 [id number] , [facility], OFFICE [address] [place] [phone] 10/24/2013 12:06:12 10/24/2013 13:02:50 Hematochezia [id number] , [facility], OFFICE [address] [place] [phone] 01/17/2014 13:24:51 01/17/2014 14:13:14 Adult health examination [id number] see Risk Assessment and Lifestyle Change Counseling section above Counseling [id number] Amy Hickman , [facility], OFFICE [address] [place] [phone] 04/19/2014 13:55:43 04/19/2014 14:49:38 Tinnitus 11315679 Strain of neck muscle 297421504 [id number] Dunia Fam , [facility], OFFICE [address] [place] [id number] 07/12/2014 08:46:31 07/12/2014 09:41:23 Tinnitus 93763552 [id number] Andreas Ryder MD , [facility], OFFICE [address] [place] [id number] 10/25/2014 08:12:44 10/25/2014 09:48:05 Acute posterior myocardial infarction 189976668 Angina pectoris 178182395 Dyspnea 543367170 [id number] , [facility], OFFICE [address] [place] [phone] 11/21/2014 13:13:41 11/24/2014 09:12:20 Acute posterior myocardial infarction [id number] Angina pectoris [id number] Andreas Ryder MD , [facility], OFFICE [address] [place] [address] [phone] 01/24/2015 08:40:54 01/24/2015 09:58:31 Adult health examination [id number] see Risk Assessment and Lifestyle Change Counseling section above Counseling [id number] Onychomycosis [id number] Andreas Ryder MD , [facility], OFFICE [address] [place] [address] [phone] 6 07/25/2015 09:32:20 07/25/2015 10:19:12 Angina pectoris [id number] I20.9 Onychomyco sis due to dermatophyte 086992721 B35.1 [id number] Andreas Ryder MD , [facility], OFFICE [address] [place] [address] [phone] 6 02/04/2016 08:50:29 02/04/2016 09:45:04 Angina pectoris [id number] I20.9 Myocardial infarction 22 611570 I21.3 Asthma 817204873 J45.20 Atopic dermatitis 542675 01 L20.9 Adult heal th examination 112013817 Z00.00 see Risk Assessment and Lifestyle Change Counseling section above [id number] Andreas Ryder MD , [facility], OFFICE [address] [place] [address] [phone] 6 08/06/2016 08:22:53 08/06/2016 09:33:06 Myocardial infarction 67598754 I21.3 Angina pectoris 22094186 0 I20.9 Eczema 05684630 L30.9 Impaired f asting glycemia 904150235 R73.01 [id number] Andreas Ryder MD , [facility], OFFICE [address] [place] [address] [phone] 10/03/2016 07:53:33 10/03/2016 13:19:39 Screening for disorder 491899210 Z11.59 Impaired f asting glycemia 439211959 R73.01 Orthostati c hypotension 50268080 I95.1 [id number] Andreas Ryder MD , [facility], OFFICE [address] [place] [address] [phone] 02/10/2017 13:27:59 02/10/2017 14:38:56 Adult health examination 288752159 Z00.00 see Risk Assessment and Lifestyle Change Counseling section above Counseling 632665416 Z71 .9 Myocardial infarction 22 539055 I21.3 Impaired f asting glycemia 971944220 R73.01 [id number] Andreas Ryder MD , [facility], OFFICE [address] [place] [address] [phone] 6 08/17/2017 08:35:41 08/17/2017 09:22:55 Angina pectoris 340078718 I20.9 Myocardial infarction 22 702304 I21.3 Impaired f asting glycemia 823165045 R73.01 [id number] MD EMMANUEL Wei, [facility], OFFICE [address] [place] [address] [phone] 6 01/15/2018 15:31:25 01/15/2018 17:27:44 Low back pain 184661692 M54.5 [id number] Andreas Ryder MD , [facility], OFFICE [address] [place] [address] [phone] 6 02/16/2018 13:42:24 02/16/2018 14:23:01 Adult health examination 656949186 Z00.00 see Risk Assessment and Lifestyle Change Counseling section above Counseling 729836437 Z71 .9 Depression screening 171 187179 Z13.89 depression screening tool administer ed, entered into emr, scored and discussed Angina pectoris 05472392 0 I20.9 Impaired f asting glycemia 457255683 R73.01 Myocardial infarction 22 573913 I21.3 [id number] Andreas Ryder MD , [facility], OFFICE [address] [place] [address] [phone] 6 08/13/2018 11:29:10 08/13/2018 11:49:53 Angina pectoris 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 I20.9 Myocardial infarction 22 565018 I21.3 [id number] Andreas Ryder MD , [facility], OFFICE [address] [place] [address] [phone] 6 10/25/2018 15:05:45 10/26/2018 09:06:40 Nonvenomous insect bite of multiple sites 134054918 W57.XXXA [id number] Andreas Ryder MD , [facility], OFFICE [address] [place] [address] [phone] 6 02/18/2019 10:37:42 02/18/2019 11:14:04 Adult health examination 879846411 Z00.00 see Risk Assessment and Lifestyle Change Counseling section above Counseling 786989977 Z71 .9 Depression screening 171 Z13.89 depression screening tool administer ed, entered into emr, scored and discussed Angina pectoris 61996162 0 I20.9 Myocardial infarction 22 [id number] I21.3 [id number] Andreas Ryder MD , [facility], OFFICE [address] [place] [address] [phone] 6 11/29/2019 16:14:39 11/30/2019 09:38:10 Esophageal dysphagia 33876089 R13.19 [id number] Andreas Ryder MD , [facility], OFFICE [address] [place] [address] [phone] 6 03/12/2020 11:22:17 03/12/2020 12:54:29 Adult health examination 656419698 Z00.00 see Risk Assessment and Lifestyle Change Counseling section above Counseling 240213518 Z71 .9 including cardiovasc ular risk reduction counseling Depression screening 171 Z13.89 depression screening tool administer ed, entered into emr, scored and discussed Screening for alcohol abuse 944847189 Z13.39 Angina pectoris 45836336 0 I20.9 stable. continue the aspirin, atorvastat in. [id number] Andreas Ryder MD , [facility], OFFICE [address] [place] [address] [phone] 6 04/16/2021 13:24:26 04/19/2021 07:51:07 Adult health examination 746264351 Z00.00 see Risk Assessment and Lifestyle Change Counseling section above Counseling 843054635 Z71 .9 including cardiovasc ular risk reduction counseling Depression screening 171 589573 Z13.31 depression screening tool administer ed, entered into emr, scored and discussed. Screening for alcohol abuse 904608008 Z13.39 Impaired f asting glycemia 549477355 R73.01 check labs [id number] Malcom Son MD , [facility], OFFICE [address] [place] [address] [phone] 6 04/01/2024 09:45:25 04/01/2024 12:41:03 Active or passive immunization 848679488 Z23 Flu: declines 04/01/24 MWPneumo: 04/01/24 MWShingles : 04/01/24 MW Contact de rmatitis caused by urushiol from [facility] mariaa 701745481 L25.5 - Recommend starting an anti-hista mine such as benadryl or claritin to help with itching- ice can also help with itching- Wash anything that came into contact with the plant oil - gloves, tools, shoes, etc- The rash is not contagious , must come in contact with the plant oil- Return to office if symptoms are worsening or not improving [id number] Andreas Ryder MD , [facility], OFFICE [address] [place] [address] 6 04/05/2024 15:21:37 04/05/2024 16:12:40 Adult health examination 356406103 Z00.00 see Risk Assessment and Lifestyle Change Counseling section above Depression screening 171 725916 Z13.31 depression screening tool administer ed Screening for alcohol abuse 401383301 Z13.39 Alcohol use screening tool administer ed Active or passive immunization 147330101 Z23 Declines all vaccines Advance di rective discussed with patient 502045134 Z71.89 Prediabetes 852327292 R7 3.03 have pt get labs and send to dr Tarah Brasher anteri or myocardial infarction 464686453 I25.2 Health Concerns Section Related Observation LastModified by Organization Detai ls LastModified Time None Recorded Concern Status LastModified by Organization Details LastModified Time None Recorded Advance Directives Directive None Recorded Payers Encounter Date Sequence Insurance Name Policy Number Policy Voss Covered Member ID Voss Member ID Guarantor Name 11/29/2019 1 [place] HMO) [id number] Luis Pak [id number] Luis Pak 03/12/2020 1 [place] HMO) [id number] Luis Pak [id number] Luis Pak 04/16/2021 1 [place] HMO) [id number] Luis Pak [id number] Luis Pak 04/01/2024 1 [place] HMO) [id number] Luis Pak [id number] Heriduncan Nnamdijdon 04/05/2024 1 [facility]: MEDICARE HMO BLUE (MEDICARE REPLACEMENT HMO) [id number] Luis Sotelo Nnamdijnar [id number] Luis Pak Notes Date Note Type Note Provider Name and Address Organization Details Recorded Time 0 text/html This is a virtual visit due to the covid-19 pandemic11/29/2019 home vitals WT 180, Meds were reconciled For the last 2 yrs when eating meat if he does not chew thoroughly it feels like it gets stuck. Sometimes has to vomit to get it out. If has soft food first, then it works better. Was happening every 2 months, then sometimes for a few meals at a time after that, then normal again. until 2 mo's. . Feels tight, can't eat anymore when he gets this. Yesterday had an episode, made himself vomit, but could not eat, felt like it was still tight. Did have bad potato salad yest. Denies chest pain, hematochezia, pain in between episodes, GERD symptoms or burning, melena. Andreas Ryder MD [address] [place] [address], [phone], [facility] 11/29/2019 17:21:00 0 text/html Physical Exam/MaleReported bypatient.Notes:Pt here for annual physical. 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 States he is feeling better since then. Currently on metoprolol, aspirin and statin. No episodes of syncope, angina, palpitations, h/a, n/v, sexual impotence or dizziness. Did have lightheadedness when first on the beta rachel, but has improved since. Exercising 4 times a week of appropriately intensive cardio. Mentions suspected toe nail fungus on right Hallux, Laterally. Had an episode of blood in underwear in 2013. No repeat episodes. Found to be hemorrhoids and sigmoid diverticulum. PSH is sig for stent placement in RCA. Last colonoscopy was 2013. Told to return in ten years. Recieved PCV. Social drinker, does not smoke, not particularly interested in dietary changes as he and his do not believe they had an unhealthy diet prior to the heart attack.Risk Assessment and Lifestyle Change Counseling 65+ (Medicare)Reported bypatient.Safety Risk Assessment:Has grab bars in bathroom; Has rails on steps; No falls; No evidence of abuse/neglect Functional Status:Patient does not have trouble hearing the television or radio when others do not.; Patient does not have to strain or struggle to hear/understand conversations; Patient does not need help with preparing meals, transportation, shopping, taking medicine, managing finances, or other activities of daily living.; Patient does not have visual loss that interferes with daily activities; Does not live alone; Patient was not unsteady and did not take longer than 30 seconds during the timed get up and go test.; Patient reports no falls in the past 6 months.Risk Assessment and Lifestyle Change Counseling-male 65+Reported bypatient.Coronary Artery Disease Risk Assessment:No Family history of coronary artery disease; Regular exercise program; Eats a diet low in fats and high in fiber; No personal history of hypertension; Lipids in good range; No personal history of diabetes; No use of tobacco; No history of peripheral vascular disease, AAA, or carotid disease; No personal history of coronary artery disease; Patient has average risk for coronary artery disease Colon Cancer Risk Assessment:No family history of colon polyps or cancer; No history of adenomatous colon polyps; Patient has average risk for colon cancer Lung Cancer Risk Assessment:Never smoked; No asbestos exposure; Patient has average risk for lung cancer Fracture Risk Assessment:No unexplained fracture; No falls; No use of corticosteroids; No anti-seizure medication; Normal bone density; Has adequate calcium intake; Taking Vitamin D supplement; No chronic use of proton pump inhibitors; Patient has average risk for osteoporotic bone fractures Risk for Sexually transmitted disease Assessment:No history of sexually transmitted disease; Monogamous relationship Cognitive/Behavioral Risk Assessment:No history of depression; No family history of depression Safety Risk Assessment:Uses helmet for high velocity activities; Uses seat belts; Has grab bars in bathroom; Has not had frequent falls; No evidence of abuse/neglect; Concerns for alcohol or drug abuse? NO Functional Status:Patient does not have trouble hearing the television or radio when others do not.; Patient does not have to strain or struggle to hear/understand conversations; Patient does not need help with preparing meals, transportation, shopping, taking medicine, managing finances, or other activities of daily living.; Patient does not have visual loss that interferes with daily activities; Does not live alone; Patient was not unsteady and did not take longer than 30 seconds during the timed get up and go test.; Over the last two weeks patient has not felt down, depressed or hopeless; Over the last two weeks the patient has not felt little interest or pleasure in doing things. Exercise counseling:Discussed the importance of daily physical activity Advanced DirectivesDiscussed the importance of a health care proxy and advanced directives; Discussed DNR status; MOLST form discussed. This is a virtual visit due to the covid-19 pandemic03/12/2020 Seen for wellness. lost 8 lbs or so.Much fewer cookies. Had been having some dysphagia, but had neg endoscopy. other than 6 cm hiatal hernia. Symptoms gone w./ better chewing. neg colo. Had KS. Got off clopidrigel in April 2017. continues on statin and ASpirin. Stretches 20 min in AM, weights 3d a wk. Golfs almost everyday. Rash on L index finger. Eliminated dairy and gluten and feels better . Tried antifungals and steroids. Getting better gradually. . seems like slowly peeling off and getting better. less swelling. No CP or SOB. Diet- average. [place]. fruit daily, veggies w/ dinner. Does do take out. Weight has lost 4 lbs. Andreas Ryder MD [address] [place] [address], [phone], [facility] 03/12/2020 11:56:03 1 text/html Physical Exam/MaleReported bypatient.Notes:Pt here for annual physical. 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 States he is feeling better since then. Currently on metoprolol, aspirin and statin. No episodes of syncope, angina, palpitations, h/a, n/v, sexual impotence or dizziness. Did have lightheadedness when first on the beta rachel, but has improved since. Exercising 4 times a week of appropriately intensive cardio. Mentions suspected toe nail fungus on right Hallux, Laterally. Had an episode of blood in underwear in 2013. No repeat episodes. Found to be hemorrhoids and sigmoid diverticulum. PS is sig for stent placement in RCA. Last colonoscopy was 2013. Told to return in ten years. Recieved PCV. Social drinker, does not smoke, not particularly interested in dietary changes as he and his do not believe they had an unhealthy diet prior to the heart attack.Risk Assessment and Lifestyle Change Counseling 65+ (Medicare)Reported bypatient.Safety Risk Assessment:Has grab bars in bathroom; Has rails on steps; No falls; No evidence of abuse/neglect Functional Status:Patient does not have trouble hearing the television or radio when others do not.; Patient does not have to strain or struggle to hear/understand conversations; Patient does not need help with preparing meals, transportation, shopping, taking medicine, managing finances, or other activities of daily living.; Patient does not have visual loss that interferes with daily activities; Does not live alone; Patient was not unsteady and did not take longer than 30 seconds during the timed get up and go test.; Patient reports no falls in the past 6 months.Risk Assessment and Lifestyle Change Counseling-male 65+Reported bypatient.Coronary Artery Disease Risk Assessment:No Family history of coronary artery disease; Regular exercise program; Eats a diet low in fats and high in fiber; No personal history of hypertension; Lipids in good range; No personal history of diabetes; No use of tobacco; No history of peripheral vascular disease, AAA, or carotid disease; No personal history of coronary artery disease; Patient has average risk for coronary artery disease Colon Cancer Risk Assessment:No family history of colon polyps or cancer; No history of adenomatous colon polyps; Patient has average risk for colon cancer Lung Cancer Risk Assessment:Never smoked; No asbestos exposure; Patient has average risk for lung cancer Fracture Risk Assessment:No unexplained fracture; No falls; No use of corticosteroids; No anti-seizure medication; Normal bone density; Has adequate calcium intake; Taking Vitamin D supplement; No chronic use of proton pump inhibitors; Patient has average risk for osteoporotic bone fractures Risk for Sexually transmitted disease Assessment:No history of sexually transmitted disease; Monogamous relationship Cognitive/Behavioral Risk Assessment:No history of depression; No family history of depression Safety Risk Assessment:Uses helmet for high velocity activities; Uses seat belts; Has grab bars in bathroom; Has not had frequent falls; No evidence of abuse/neglect; Concerns for alcohol or drug abuse? NO Functional Status:Patient does not have trouble hearing the television or radio when others do not.; Patient does not have to strain or struggle to hear/understand conversations; Patient does not need help with preparing meals, transportation, shopping, taking medicine, managing finances, or other activities of daily living.; Patient does not have visual loss that interferes with daily activities; Does not live alone; Patient was not unsteady and did not take longer than 30 seconds during the timed get up and go test.; Over the last two weeks patient has not felt down, depressed or hopeless; Over the last two weeks the patient has not felt little interest or pleasure in doing things. Exercise counseling:Discussed the importance of daily physical activity Advanced DirectivesDiscussed the importance of a health care proxy and advanced directives; Discussed DNR status; MOLST form discussed. Here for medicare wellness. Gained some wt back. [employer] 18 rounds golf 4-5 d a wk. in winter does [place] track and a kind of treadmill for about 35 min total . Has dumbells does 10 min a day. Also does balancing. Had been having some dysphagia, but had neg endoscopy. other than 6 cm hiatal hernia. Symptoms gone w./ better chewing. neg colo. Had [place]. Got off clopidrigel in April 2017. continues on statin and Aspirin. Rash on L index finger. Takes tumeric. Tried antifungals and steroids. Getting better gradually. . seems like slowly peeling off and getting better. l No CP or SOB. Diet- average. [place]. fruit daily, veggies w/ dinner. Does do take out. Airpurifier has helped his 's breathing Hiatal Hernia- mild reflux- zinc seems to help. Takes Magnesium. Brother Dx penis cancer. Andreas Ryder MD [address] [place] [address], [phone], [facility] 04/16/2021 14:12:42 4 text/html RashReported bypatient.Patient present for evaluation of new rash.not painful; no discharge; no new detergent/soap/fragrance s; not associated with food(s); no systemic symptomsNotes:Touched poison mariaa. using cortisone but spreading and getting blisters. 04/01/24 Malcom Son MD [address] [place] [address], [phone], [facility] 04/01/2024 10:25:07 4 text/html Physical Exam/MaleReported bypatient.Notes:Pt here for annual physical. 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 States he is feeling better since then. Currently on metoprolol, aspirin and statin. No episodes of syncope, angina, palpitations, h/a, n/v, sexual impotence or dizziness. Did have lightheadedness when first on the beta rachel, but has improved since. Exercising 4 times a week of appropriately intensive cardio. Mentions suspected toe nail fungus on right Hallux, Laterally. Had an episode of blood in underwear in 2013. No repeat episodes. Found to be hemorrhoids and sigmoid diverticulum. PSH is sig for stent placement in RCA. Last colonoscopy was 2013. Told to return in ten years. Recieved PCV. Social drinker, does not smoke, not particularly interested in dietary changes as he and his do not believe they had an unhealthy diet prior to the heart attack.Risk Assessment and Lifestyle Change Counseling (Medicare)Reported bypatient.Safety Risk Assessment:Has grab bars in bathroom; Has rails on steps; No falls; No evidence of abuse/neglect Functional Status:Patient does not have trouble hearing the television or radio when others do not.; Patient does not have to strain or struggle to hear/understand conversations; Patient does not need help with preparing meals, transportation, shopping, taking medicine, managing finances, or other activities of daily living.; Patient does not have visual loss that interferes with daily activities; Does not live alone; Patient was not unsteady and did not take longer than 30 seconds during the timed get up and go test.; Patient reports no falls in the past 6 months.Risk Assessment and Lifestyle Change Counseling-male 65+Reported bypatient.Coronary Artery Disease Risk Assessment:No Family history of coronary artery disease; Regular exercise program; Eats a diet low in fats and high in fiber; No personal history of hypertension; Lipids in good range; No personal history of diabetes; No use of tobacco; No history of peripheral vascular disease, AAA, or carotid disease; No personal history of coronary artery disease; Patient has average risk for coronary artery disease Colon Cancer Risk Assessment:No family history of colon polyps or cancer; No history of adenomatous colon polyps; Patient has average risk for colon cancer Lung Cancer Risk Assessment:Never smoked; No asbestos exposure; Patient has average risk for lung cancer Fracture Risk Assessment:No unexplained fracture; No falls; No use of corticosteroids; No anti-seizure medication; Normal bone density; Has adequate calcium intake; Taking Vitamin D supplement; No chronic use of proton pump inhibitors; Patient has average risk for osteoporotic bone fractures Risk for Sexually transmitted disease Assessment:No history of sexually transmitted disease; Monogamous relationship Cognitive/Behavioral Risk Assessment:No history of depression; No family history of depression Safety Risk Assessment:Uses helmet for high velocity activities; Uses seat belts; Has grab bars in bathroom; Has not had frequent falls; No evidence of abuse/neglect; Concerns for alcohol or drug abuse? NO Functional Status:Patient does not have trouble hearing the television or radio when others do not.; Patient does not have to strain or struggle to hear/understand conversations; Patient does not need help with preparing meals, transportation, shopping, taking medicine, managing finances, or other activities of daily living.; Patient does not have visual loss that interferes with daily activities; Does not live alone; Patient was not unsteady and did not take longer than 30 seconds during the timed get up and go test.; Over the last two weeks patient has not felt down, depressed or hopeless; Over the last two weeks the patient has not felt little interest or pleasure in doing things. Exercise counseling:Discussed the importance of daily physical activity Advanced DirectivesDiscussed the importance of a health care proxy and advanced directives; Discussed DNR status; MOLST form discussed. Here for medicare wellness. Gained some wt back. Golfs 18 rounds golf 4-5 d a wk. Uses the cart . in winter does non-eliptical. 35 min total . Has dumbells does 10 min a day. Also does balancing. and stretching Had been having some dysphagia, but had neg endoscopy. other than 6 cm hiatal hernia. Symptoms gone w./ better chewing. neg colo. Had [place]. Got off clopidrigel in April 2017. continues on statin and Aspirin. No CP or SOB. Diet- average. [place]. fruit daily, veggies w/ dinner. Does do take out. Airpurifier has helped his 's breathing Hiatal Hernia- mild reflux- zinc seems to help. Takes Magnesium. Brother Dx penis cancer. ? hx adenomatous polyp last colo 2019. Andreas Ryder MD [address] [place] [address], [phone], [facility] 04/05/2024 16:07:43
== END 2024-08-11 09:44 | disposition home or self-care (01) ==
PROVIDERS: PCP Family Medicine; Visit Provider Internal Medicine Cardiovascular Disease
DX: I25.10 Atherosclerotic heart disease of native coronary artery without angina pectoris (principal)
CPT/HCPCS: 93010; 99214; G2211

== ENCOUNTER → 2024-08-11 09:22 | Outpatient (BNVA) | payer MEDICARE, SELFPAY | PROVIDERS: PCP Family Medicine; Visit Provider Internal Medicine Cardiovascular Disease | DX: I25.10 Atherosclerotic heart disease of native coronary artery without angina pectoris (principal) | CPT/HCPCS: 93005; 99212 ==